=== PATIENT | female | born 1990 ===

== ENCOUNTER 2022-07-16 08:03 | Outpatient (CLI) | payer OTHER | END 2022-07-16 08:04 | disposition home or self-care (01) | LOC: ULT 08:03 | PROVIDERS: ATTEND Family Medicine | DX: N93.9 Abnormal uterine and vaginal bleeding, unspecified (principal); N83.201 Unspecified ovarian cyst, right side; N83.202 Unspecified ovarian cyst, left side | CPT/HCPCS: 76856 ==